=== PATIENT | female | born 1960 | race Caucasian/White ===

== ENCOUNTER 2021-06-10 18:25 | Emergency (ER) | payer OTHER ==
[2021-06-10 18:40] VITALS: TEMP 97.6; BMI 31.4
[2021-06-10] MEDS ORDERED: SODIUM CHLORIDE 1,000 ML IV STA (20:32)
[2021-06-10 22:23] LABS: BASO % 0.1 % (0-2.0); EOS % 0.1 % (0-4.5); HEMATOCRIT 35.4 % (32.4-45.2); HEMOGLOBIN 11.8 GM/dL (10.7-15.3); LYMPH % 19.3 % (8-40); MCH 28.2 pg (25.7-33.7); MCHC 33.4 g/dl (32.0-36.0); MEAN CELL VOLUME 84.4 fl (80-96); MONO % 5.1 % (3.8-10.2); NEUT % 75.4 % (42.8-82.8); PLATELET COUNT 240 10^3/uL (134-434); RDW 14.8 % (11.6-15.6); WHITE BLOOD COUNT 12.1 K/mm3 (4.0-10.0)
[2021-06-10 22:41] LABS: CHLORIDE 105 mmol/L (98-107); SODIUM 140 mmol/L (136-145)
[2021-06-10 22:43] LABS: ALBUMIN 3.8 g/dl (3.4-5.0); ANION GAP 10 MMOL/L (8-16); CALCIUM 8.9 mg/dL (8.5-10.1); CO2 24 mmol/L (21-32)
[2021-06-10 22:44] LABS: GLUCOSE,RANDOM 198 mg/dL (74-106)
[2021-06-10 22:46] LABS: CREATININE 0.7 mg/dL (0.55-1.3)
[2021-06-10 22:47] LABS: SGOT/AST 24 U/L (15-37); SGPT/ALT 49 U/L (13-61)
[2021-06-10 22:48] LABS: BILIRUBIN,TOTAL 0.3 mg/dL (0.2-1); TOT PROT 7.8 g/dl (6.4-8.2)
[2021-06-10 22:49] LABS: ALK PHOS 85 U/L (45-117)
[2021-06-10 22:52] LABS: EPI CELLS 15 /uL (0-25.1); HYALINE CASTS 1 /uL (0-3.1); URINE APPEARANCE CLEAR; URINE BACTERIA 188 /uL (0-1359); URINE BILIRUBIN NEGATIVE (NEGATIVE); URINE COLOR YELLOW; URINE GLUCOSE (UA) NEGATIVE (NEGATIVE); URINE KETONE NEGATIVE (NEGATIVE); URINE LEUK ESTERASE 1+ (NEGATIVE); URINE NITRITE NEGATIVE (NEGATIVE); URINE PROTEIN NEGATIVE (NEGATIVE); URINE RBC 1 /uL (0-23.9); URINE UROBILINOGEN 0.2 mg/dL (0.2-1.0); URINE WBC 53 /uL (0-25.8)
[2021-06-10 23:38] VITALS: BP 119/71; PULSE 76
== END 2021-06-10 23:37 | disposition home or self-care (01) ==
LOC: JER 18:25
PROC: 3E0337Z Introduction of Electrolytic and Water Balance Substance into Peripheral Vein, Percutaneous Approach (ICD-10-PCS; principal; 2021-06-10)
DX: N30.00 Acute cystitis without hematuria (principal); I10 Essential (primary) hypertension
CPT/HCPCS: 36415; 80053; 81003; 82550; 82962; 84484; 85025; 87086; 93005; 93010; 99284-25

== ENCOUNTER 2021-09-21 17:00 | Emergency (ER) | payer OTHER ==
[2021-09-21 17:04] VITALS: BP 154/55; PULSE 85; TEMP 97.7; BMI 31.4
[2021-09-21] MEDS ORDERED: KETOROLAC TROMETHAMINE 30 MG/1 ML VIAL IM ONE (17:26)
[2021-09-21] MEDS ORDERED: KETOROLAC TROMETHAMINE 30 MG/1 ML VIAL ONE (17:32)
== END 2021-09-21 17:42 | disposition home or self-care (01) ==
LOC: JER 17:00 → JERFT 17:00
PROC: 3E023GC Introduction of Other Therapeutic Substance into Muscle, Percutaneous Approach (ICD-10-PCS; principal; 2021-09-21)
DX: M79.671 Pain in right foot (principal); M79.672 Pain in left foot
CPT/HCPCS: 73630-TC-LT; 73630-TC-RT-FY; 99284-25

== ENCOUNTER 2023-12-23 21:50 | Observation (INO) | payer OTHER ==
[2023-12-23 21:56] VITALS: BMI 29.3
[2023-12-23] MEDS ORDERED: FAMOTIDINE 20 MG/50 ML IVPB 20 MG/50 ML MG IVPB ONE (22:44)
[2023-12-23] MEDS ORDERED: ACETAMINOPHEN INJECTION 100 ML IVPB ONE (22:44)
[2023-12-23] MEDS ORDERED: MAG HYDROX/AL HYDROX/SIMETH 30 ML UNIT-DOSE CUP ONE (22:44)
[2023-12-23] MEDS: ACETAMINOPHEN 1000 MG/100 ML BAG IVPB ONE (22:58)
[2023-12-23] MEDS: FAMOTIDINE 20 MG/50 ML IVPB 20 MG/50 ML MG IVPB ONE (22:58)
[2023-12-23] MEDS: MAG HYDROX/AL HYDROX/SIMETH 30 ML UNIT-DOSE CUP PO ONE (22:58)
[2023-12-23 23:05] LABS: BASO % 0.9 % (0-2.0); EOS % 1.4 % (0-4.5); HEMATOCRIT 33.7 % (32.4-45.2); HEMOGLOBIN 11.3 GM/dL (10.7-15.3); MCH 27.2 pg (25.7-33.7); MCHC 33.5 g/dl (32.0-36.0); MEAN CELL VOLUME 81.1 fl (80-96); MEAN PLT VOLUME 7.5 fl (7.5-11.1); MONO % 7.1 % (3.8-10.2); NEUT % 46.6 % (42.8-82.8); PLATELET COUNT 212 10^3/uL (134-434); RBC 4.15 M/mm3 (3.60-5.2); RDW 16.1 % (11.6-15.6); WHITE BLOOD COUNT 5.9 K/mm3 (4.0-10.0)
[2023-12-23 23:19] LABS: ACTIVATED PTT 25.9 SECONDS (25.2-36.5); INR 0.95 (0.83-1.09); POTASSIUM 3.6 mmol/L (3.5-5.1); PROTHROMBIN TIME (PATIENT) 10.9 SEC (9.7-13.0)
[2023-12-23 23:21] LABS: BLOOD UREA NITROGEN 12.6 mg/dL (7-18); CALCIUM 8.6 mg/dL (8.5-10.1)
[2023-12-23 23:22] LABS: ALBUMIN 3.7 g/dl (3.4-5.0)
[2023-12-23 23:25] LABS: CREATININE 0.5 mg/dL (0.55-1.3)
[2023-12-23 23:26] LABS: BILIRUBIN,TOTAL 0.3 mg/dL (0.2-1)
[2023-12-24] MEDS ORDERED: MORPHINE SULFATE 2 MG/ML SYRINGE ONE (01:38)
[2023-12-24] MEDS ORDERED: PANTOPRAZOLE SODIUM 40 MG/100 ML BAG IVPB ONE (01:38)
[2023-12-24] MEDS: morphine CARPU-JECT 2 MG/1 ML DISP.SYRIN IVPUSH ONE (01:47)
[2023-12-24] MEDS: PANTOPRAZOLE SODIUM 40 MG VIAL IVPUSH ONE (01:47)
[2023-12-24] MEDS ORDERED: MAG HYDROX/AL HYDROX/SIMETH 30 ML UNIT-DOSE CUP PO PRN (06:33)
[2023-12-24] MEDS ORDERED: ACETAMINOPHEN 1000 MG/100 ML BAG IVPB PRN (06:33)
[2023-12-24 07:47] VITALS: RESP 17
[2023-12-24 08:20] LABS: HEMOGLOBIN 11.3 GM/dL (10.7-15.3); MCH 26.8 pg (25.7-33.7); MCHC 33.2 g/dl (32.0-36.0); MEAN CELL VOLUME 80.7 fl (80-96); MEAN PLT VOLUME 7.9 fl (7.5-11.1); PLATELET COUNT 217 10^3/uL (134-434); RBC 4.21 M/mm3 (3.60-5.2); WHITE BLOOD COUNT 4.9 K/mm3 (4.0-10.0)
[2023-12-24] MEDS: ACETAMINOPHEN 1000 MG/100 ML BAG IVPB ONE (08:25)
[2023-12-24 08:45] LABS: POTASSIUM 3.6 mmol/L (3.5-5.1)
[2023-12-24 08:56] LABS: CALCIUM 8.7 mg/dL (8.5-10.1)
[2023-12-24 08:57] LABS: BLOOD UREA NITROGEN 12.2 mg/dL (7-18); MAGNESIUM 1.8 mg/dL (1.8-2.4)
[2023-12-24 09:00] LABS: CREATININE 0.5 mg/dL (0.55-1.3)
[2023-12-24] MEDS: INSULIN ASPART SLIDING SCALE (NOVOLOG) 1 VIAL SQ SCH (11:17)
[2023-12-24 11:34] VITALS: BP 121/54; PULSE 63; TEMP 97.9
[2023-12-24] MEDS: PANTOPRAZOLE 40 MG TABLET PO SCH (12:45)
[2023-12-24] MEDS: KETOROLAC TROMETHAMINE 15 MG/ML VIAL IVPUSH ONE (14:34)
[2023-12-24] MEDS: LIDOCAINE 5% TOPICAL PATCH TP SCH (14:39)
[2023-12-24] MEDS ORDERED: LIDOCAINE PATCH REMOVAL MC SCH (22:00)
[2023-12-24] MEDS ORDERED: ATORVASTATIN CA 20 MG TABLET (FP) PO SCH (22:00)
== END 2023-12-24 15:12 | disposition home or self-care (01) ==
LOC: JER 21:50 → JERBED 12-24 01:38 → J4S 12-24 06:40
PROVIDERS: ADMIT Internal Medicine; ATTEND Internal Medicine
PROC: 3E033NZ Introduction of Analgesics, Hypnotics, Sedatives into Peripheral Vein, Percutaneous Approach (ICD-10-PCS; principal; 2023-12-24)
PROC: 3E033GC Introduction of Other Therapeutic Substance into Peripheral Vein, Percutaneous Approach (ICD-10-PCS; 2023-12-24)
PROC: 3E0333Z Introduction of Anti-inflammatory into Peripheral Vein, Percutaneous Approach (ICD-10-PCS; 2023-12-24)
DX: R07.89 Other chest pain (principal); R55 Syncope and collapse; E11.9 Type 2 diabetes mellitus without complications; E78.5 Hyperlipidemia, unspecified; K21.9 Gastro-esophageal reflux disease without esophagitis; Z90.49 Acquired absence of other specified parts of digestive tract; I10 Essential (primary) hypertension; Z91.09 Other allergy status, other than to drugs and biological substances
CPT/HCPCS: 36415; 71045-TC-FY; 80048; 80053; 80061; 82962; 83036; 83735; 84100; 84484; 85025; 85027; 85379; 85610; 85730; 93005; 93010; 93306-TC; 94010; 96365; 96375; 99285-25; G0378; J0131